=== PATIENT | female | born 1960 | race African-American/Black ===

== ENCOUNTER 2018-03-07 19:42 | Emergency (ER) | payer MEDICARE ==
[~2018-03-07] VITALS: Ht 162.6 cm; Wt 77.1 kg
[2018-03-07 19:52] VITALS: BP 180/117
--- NOTE | 2018-03-07 20:14 | ED.ADGEN ---
Past History Past Medical History: Arthritis, Hypertension Past Surgical History: Cholecystectomy, Hysterectomy, Knee Replacement Alcohol Use: None Drug Use: None Adult General HPI HPI 57-year-old female presents the emergency department with a rash on her right neck and right arm she noticed about 36-48 hours ago. She states that it itches. She has hives on her neck and on her right inner arm. She states that she is allergic to Remicade, hydrochlorothiazide. She denies any other allergies. Denies any food allergies. States that she thinks she must have gotten written by an insect but she does not recall any stinging sensation. She denies any throat swelling, shortness of breath or wheezing. She denies any abdominal pain, bloating or vomiting. She states that 2 days ago she did eat some nuts but does not associate this to her rash because they heard separately. She denies any history of nut allergy. (We had a conversation about her potential for nut allergy and to be very mindful next time she has any nuts) . Review of Systems Review of Systems Constitutional: Denies fever or chills Eyes: Denies change in visual acuity, redness, or eye pain HENT: Denies nasal congestion or sore throat Respiratory: Denies cough or shortness of breath Cardiovascular: No additional information not addressed in HPI GI: Denies abdominal pain, nausea, vomiting, bloody stools or diarrhea : Denies dysuria or hematuria Musculoskeletal: Denies back pain or joint pain Integument: Denies rash or skin lesions Neurologic: Denies headache, focal weakness or sensory changes Endocrine: Denies polyuria or polydipsia All other systems were reviewed and found to be within normal limits, except as documented in this note. Family History Family History no significant fam hx Current Medications Current Medications He is on immunosuppressants for rheumatoid arthritis Allergies Allergies Allergies Coded Allergies Type Severity Reaction Last Updated Verified rifampin Allergy Intermediate 03/07/18 Yes Physical Exam Physical Exam GENERAL: Awake, alert, well appearing, nontoxic HEAD/NECK/EYES: Normocephalic, Neck supple, PERRL ENT Airway patent, mucous membranes moist RESP: Nontachypneic, no respiratory distress, normal breath sounds bilaterally CV: Regular rhythm, normal perfusion ABD/GI: Soft, non-tender, no guarding, no rebound, no palpable pulsatile mass BACK: Inspection NL EXT: Neurovascularly intact, no deformities SKIN: Warm, dry , wheals to the right side of the neck, inner right arm, no skin breaks, no tenderness NEURO: Oriented X3, normal speech, no motor deficits, no sensory deficits, CN II - XII intact PSYCH: Cooperative, appropriate affect Current Patient Data Vital Signs Vital Signs Date Time Temp Pulse Resp B/P (MAP) Pulse Ox O2 Delivery O2 Flow Rate FiO2 03/07/18 19:52 98.1 78 20 99 Room Air EKG EKG [] Radiology/Procedures Radiology/Procedures [] Impressions: Urticaria Course & Med Decision Making Course & Med Decision Making Differential diagnosis includes but not limited to: Allergic reaction, insect bite, nut allergy, idiopathic urticaria Final Impression Final Impression Urticaria Patient is on biologic/immunosuppressantsplan will be to give one dose of corticosteroids here in the emergency department and have her follow-up with her primary care doctor and take Benadryl tonight. She is stable for discharge and agreeable to plan. Dragon Disclaimer Dragon Disclaimer This electronic medical record was generated, in whole or in part, using a voice recognition dictation system. MORENO RAMESH DO Mar 07, 2018 20:14
[2018-03-07] MEDS ORDERED: DEXAMETHASONE SOD PHOS 10 MG/ML VIAL PO ONE (20:15)
== END 2018-03-07 20:18 | disposition home or self-care (01) ==
LOC: ER 19:42
DX: L50.9 Urticaria, unspecified (principal); I10 Essential (primary) hypertension; M19.90 Unspecified osteoarthritis, unspecified site; Z88.8 Allergy status to other drugs, medicaments and biological substances
CPT/HCPCS: 99282; J1100